=== PATIENT | male | born 1990 | race Caucasian/White ===

== ENCOUNTER → 2018-09-04 12:19 | Outpatient (CLI) | payer OTHER, SELFPAY ==
--- NOTE | 2018-09-04 12:26 | DI.RAD.S_ITS ---
PROCEDURE: XR CHEST 2V INDICATIONS: chronic cough TECHNIQUE: 2 views of the chest were acquired. COMPARISON: None. FINDINGS: Surgical changes and devices: None. Lungs and pleura: Lungs are clear. No pleural effusions or pneumothorax. Mediastinum: Mediastinal contours are normal. Heart size is normal. Bones and chest wall: No suspicious bony abnormalities. Soft tissues appear unremarkable. IMPRESSION: No acute cardiopulmonary disease. Dictated by: Jennifer Watkins M.D. on 09/04/2018 at 16:23 Approved by: Jennifer Watkins M.D. on 09/04/2018 at 16:23
== END ==
PROVIDERS: Visit Provider Physician Assistant
DX: R05 Cough (principal)
CPT/HCPCS: 71046